=== PATIENT | female | born 1980 | race Caucasian/White ===

== ENCOUNTER 2018-11-25 12:34 | Emergency (ER) | payer BC, OTHER ==
[~2018-11-25] VITALS: Wt 78.0 kg
[~2018-11-25 12:34] MED LIST: ACET500C5 PO; BIRTH CONTROL PILLS; CEPH-443 PO; LORA-441 PO; PSYL1040 PO
[2018-11-25 12:44] VITALS: Wt 78.0 kg
[2018-11-25 15:51] VITALS: BP 133/81; PULSE 68; RESP 18
== END 2018-11-25 15:53 | disposition home or self-care (01) ==
LOC: FTE 12:34
DX: K64.8 Other hemorrhoids (principal); N39.0 Urinary tract infection, site not specified
CPT/HCPCS: 80048; 81003; 81025; 85025; 99284

== ENCOUNTER 2019-01-02 12:49 | Emergency (ER) | payer BC ==
[~2019-01-02] VITALS: Ht 157.5 cm; Wt 68.4 kg
[2019-01-02 13:04] VITALS: BP 124/70; PULSE 80; RESP 20; Ht 157.5 cm; Wt 68.4 kg
[2019-01-02] MEDS ORDERED: LORAZEPAM 2 MG INJ IM ONE (15:00)
== END 2019-01-02 16:23 | disposition home or self-care (01) ==
LOC: FTE 12:49
DX: F41.9 Anxiety disorder, unspecified (principal); F43.9 Reaction to severe stress, unspecified
CPT/HCPCS: 93005; 96372; 99284; J2060